=== PATIENT | female | born 1985 | race Caucasian/White ===

== ENCOUNTER 2022-07-02 12:59 | Outpatient (CLI) | payer OTHER, SELFPAY | END 2022-07-02 13:00 | disposition home or self-care (01) | LOC: FRMREF 13:00 | PROVIDERS: PCP Obstetrics & Gynecology; Visit Provider Obstetrics & Gynecology | DX: Z01.419 Encounter for gynecological examination (general) (routine) without abnormal findings (principal); Z13.1 Encounter for screening for diabetes mellitus; Z13.6 Encounter for screening for cardiovascular disorders | CPT/HCPCS: 80061 ==

== ENCOUNTER 2024-03-09 08:51 | Outpatient (CLI) | payer BC, SELFPAY ==
--- OUTSIDE RECORDS SUMMARY | 2024-03-09 08:57 | XMS_ITS | Clinical Summary ---
Author Organization [facility] Address [address] [place] [address] Care Team Providers Care Hypo Splasher Name Role Phone Unavailable Primary Care Provider Unavailabl e Social History Tobacco Use Types Packs/Day Years Used Date Smoking Tobacco: Never Assessed Comments No Sex and Gender Information Value Date Recorded Sex Assigned at Not on file Legal Sex Female 12:25 PM CDT Gender Identity Not on file Sexual Orientation Not on file Plan of Treatment Not on file Insurance [employer]
--- OUTSIDE RECORDS SUMMARY | 2024-03-09 08:57 | XMS_ITS | Clinical Summary ---
Author Organization [facility] Address [place], [place] [address] Care Team Providers Care Cushion Cover Inspector Name Role Phone Clinic, No Pcp Or Primary Care Provider Unavaila ble Allergies No known active allergies Medications No known medications Social History Tobacco Use Types Packs/Day Years Used Date Smoking Tobacco: Unknown Tobacco Cessation:Counseling Given: Not Answered Sex and Gender Information Value Date Recorded Sex Assigned at Not on file Gender Identity Not on file Sexual Orientation Not on file Obstetrics History Last Filed Vital Signs Vital Sign Reading Time Taken Comments Blood Pressure 106/56 07/14/2022 10:00 AM CDT Pulse 100 07/14/2022 10:00 AM CDT Temperature 36.8 C (98.3 F) 07/14/2022 10:00 AM CDT Respiratory Rate 20 07/14/2022 10:00 AM CDT Oxygen Saturation 97% 07/14/2022 10:00 AM CDT Inhaled Oxygen Concentration - - Weight 56.7 kg (125 lb) 07/14/2022 10:00 AM CDT Height - - Body Mass Index - - Plan of Treatment Not on file Care Teams Cushion Cover Inspector Relationship Specialty Start Date End Date Clinic, No Pcp Or . PCP - General 07/14/22
--- OUTSIDE RECORDS SUMMARY | 2024-03-09 08:57 | XMS_ITS | Referral Summary ---
Author Organization [facility] Address [address] [place] [id number] Care Team Providers Care Store Keeper Name Role Phone Unavailable Primary Care Provider [...]
--- OUTSIDE RECORDS SUMMARY | 2024-03-09 08:57 | XMS_ITS | Encounter Summary ---
Author Organization [facility] Address [address] [place] [id number] Care Team Providers Care Gas Station Clerk Name Role Phone Lynn Jay MD Unavailable Unavaila ble Reason for Referral * Diagnostic Imaging Ultrasound (Routine) - Closed Specialty Diagnoses / Procedures Referred By Anne Marie andino Referred To Contact Diagnoses related condition, antepartum Procedures [facility] US Comprehensive Single Teena Pierce MD [address] [address] Phone: tel: fax: Referral ID Status Reason Start Date Expiration Date Visits Re quested Visits Authorized [id number] Closed 08/09/2018 08/09/2019 1 1 * (Routine) - Closed Specialty Diagnoses / Procedures Referred By Anne Marie andino Referred To Contact Diagnoses related condition, antepartum Teena Pierce MD [address] [address] Phone: tel: fax: Referral ID Status Reason Start Date Expiration Date Visits Re quested Visits Authorized [id number] Closed 08/09/2018 08/09/2019 1 1 Question Answer [facility] Man Vásquez MARIELA 12/24/2018 Ultrasound Comprehensive US (>than 18 weeks GA) US PROC NONE MFM Issue Abnormal Ultrasound Findings (enter details in Comments) - Dilated renal pelves choroid plexus cyst @ 20 wks JAYDA ESPINOZA Consultation (unrelated to Ultrasound findings): No Inflammatory Bowel Disease Clinic: Joint MFM and GI Consultation: No Genetic Counseling Consultation: No fax [facility] Teena Pierce [phone] Comments There is no height or weight on file to calculate BMI. >> Patient may proceed with recommendations for further testing as directed by the Maternal Medicine Specialist >> >> If requesting Echo: MFM will determine appropriate location for exam due to indication. >> If requesting Lung Maturity Amnio: If results indicate lung maturity, induction or C/S is recommended within 36 hours. Please schedule accordingly. Please be aware that coverage of these services is subject to the terms and limitations of your health insurance plan. Call member services at your health plan with any benefit or coverage questions. Please bring the following to your appointment: >> Any x-rays, CTs or MRIs which have been performed. Contact the facility where they were done to arrange for cotton picker operator prior to your scheduled appointment. Any new CT, MRI or other procedures ordered by your specialist must be performed at a [facility] facility or coordinated by your clinic's referral office. >> List of current medications >> This referral request >> Any documents/labs given to you for this referral Encounter Details Date Type Department Care Team (Latest Contact Info) Description 08/09/2018 Transcribe Orders [facility] [address] [place] [address] Teena Pierce MD [facility] [address] [place] [address] related condition, antepartum (Primary Dx) Social History Tobacco Use Types Packs/Day Years Used Date Smoking Tobacco: Never Assessed Comments Unknown Sex and Gender Information Value Date Recorded Sex Assigned at Not on file Legal Sex Female 12:25 PM CDT Gender Identity Not on file Sexual Orientation Not on file documented as of this encounter Plan of Treatment Scheduled Referrals Name Type Priority Associated Diagnoses Orde r Schedule [facility] REFERRAL- Referral Routine related condition, antepartum Ordered: 08/09/2018 documented as of this encounter Results * MFM US Comprehensive Single (08/18/2018 2:08 PM CDT) Anatomical Region Laterality Modality Ultrasound 08/18/2018 1:31 PM CDT Impressions 08/18/2018 2:20 PM CDT IMPRESSION ----- Patient here for comprehensive anatomy scan. Previous outside scan identified TANBARK PEELER and pyelectasis. Patient has had aneuploidy risk assessment with low risk NT screen. She is now at 21w5d gestational age. Active single fetus with normal behavior for gestational age. Estimated weight is appropriate for gestational age. Normal amniotic fluid volume. Normal anatomy on detailed review. Bilateral pyelectasis seen without parenchymal abnormalities consistent with UTD A-1. Mid-trimester formatted genetic scan was completed. Over 20 individual ultrasound markers for aneuploidy were evaluated. No TANBARK PEELER visualized today. The cervix appears closed on abdominal examination. Narrative 08/18/2018 2:20 PM CDT Comprehensive ----- Pat. Name: LYNETTE LEDBETTER Study Date: 08/18/2018 1:31pm Pat. NO: [id number] Referring MD: TEENA PIERCE Site: [facility] Cardiac Cath Technician: Hillary Shaver RDMS : 1985 Age: 32 ----- INDICATION ----- Dilated renal pelves and choroid plexus cysts on outside US. METHOD ----- Transabdominal ultrasound examination. View: Sufficient ----- Wang . Number of fetuses: 1 DATING ----- Date Details Gest. age MARIELA LMP 03/19/2018 21 w + 5 d 12/24/2018 Prior assessment 05/17/2018 GA: 9 w + 0 d 22 w + 2 d 12/20/2018 U/S 08/18/2018 based upon AC, BPD, Femur, HC 23 w + 0 d 12/15/2018 Assigned dating Dating performed on 08/18/2018, based on the LMP 21 w + 5 d 12/24/2018 GENERAL EVALUATION ----- Cardiac activity present. FHR 148 bpm. movements present. Presentation cephalic. Placenta anterior, no previa . Umbilical cord 3 vessel cord. Amniotic fluid Amount of AF: normal. MVP 5.3 cm. BIOMETRY ----- Main Biometry: BPD 57.5 mm 23w 4d Hadlock OFD 77.2 mm 23w 4d Nicolaides HC 215.9 mm 23w 4d Hadlock Cerebellum tr 25.7 mm 23w 5d Nicolaides AC 179.5 mm 22w 6d Hadlock Femur 37.8 mm 22w 1d Hadlock Humerus 37.8 mm 23w 2d Reginald Weight Calculation: EFW 522 g EFW (lb,oz) 1 lb 2 oz EFW by Hadlock ([id number]) Head / Face / Neck Biometry: Automatic Oven Operator 5.4 mm CM 6.5 mm Nasal bone 7.5 mm Nuchal fold 3.7 mm Urinary Tract Biometry: Rt Renal pelvis ap 5.8 mm Lt Renal pelvis ap 5.6 mm ANATOMY ----- Abdomen Right kidney: There is mild dilation of the renal pelvis without dilation of the calyces. Parenchyma is of normal echogenicity and thickness. (UTD A1: Low Risk) Left kidney: There is mild dilation of the renal pelvis without dilation of the calyces. Parenchyma is of normal echogenicity and thickness. (UTD A1: Low Risk) The following structures appear normal: Head / Neck Cranium. Head size. Head shape. Lateral ventricles. Choroid plexus. Midline falx. Cavum septi pellucidi. Cerebellum. Cisterna magna. Parenchyma. Thalami. Vermis. Neck. Nuchal fold. Face Lips. Profile. Nose. Maxilla. Mandible. Orbits. Lens. Heart / Thorax 4-chamber view. RVOT view. LVOT view. Situs. Aortic arch view. Bicaval view. Ductal arch view. Superior vena cava. Inferior vena cava. 3-vessel view. 4-bipxgy-sxxopcl view. Cardiac position. Cardiac size. Cardiac rhythm. Right lung. Left lung. Diaphragm. Abdomen Abdominal wall. Cord insertion. Stomach. Bladder. Liver. Bowel. Genitals. Spine Cervical spine. Thoracic spine. Lumbar spine. Sacral spine. Extremities / Skeleton Right hand. Left hand. Right foot. Left foot. Gender: male. MATERNAL STRUCTURES ----- Cervix Visualized Appearance: Appears Closed Cervical length 42.9 mm Right Ovary Visualized Left Ovary Visualized RECOMMENDATION ----- We discussed the findings on today's ultrasound with the patient. Bilateral renal pyelectasis of 4 to <7 mm before 28 weeks is identified without calyceal dilatation or associated parenchymal abnormalities. This is consistent with UTD A1 which is a condition with low risk for renal disease. This finding resolves in over 75% of cases prior to delivery. Most common association is with vesico-ureteral reflux that improves with advancing gestational age. Less common cause is UPJ stenosis. Renal pyelectasis has also been associated as a soft marker for aneuploidy, specifically Tri 21. Patient has prior risk assessment for aneuploidy which placed her risk at 1:5,100. Today's finding does not change the patient's low risk status. Recommend repeat assessment for pyelectasis at 32 weeks. Thank you for the opportunity to participate in the care of this patient. If you have questions regarding today's evaluation or if we can be of further service, please contact the [facility]. anomalies may be present but not detected Procedure Note Karlos Burnett MD - 08/18/2018 Comprehensive ----- Pat. Name:Isis LEDBETTER Date:08/18/2018 1:31pm Pat. NO: [id number] MD:TEENA PIERCE [facility]aver RDMS :1985Age:32 ----- INDICATION ----- Dilated renal pelves and choroid plexus cysts on outside US. METHOD ----- Transabdominal ultrasound examination. View: Sufficient ----- Wang . Number of fetuses: 1 DATING ----- DateDetailsGest. age MARIELA LMP 03/19/201821 w + 5 d 12/24/2018 Prior assessment 05/17/2018 GA: 9 w +0 d22 w + 2 d 12/20/2018 U/S 08/18/2018based upon AC, BPD, Femur, HC23 w + 0 d 12/15/2018 Assigned dating Dating performed on 08/18/2018, based onthe LMP 21 w+ 5 d 12/24/2018 GENERAL EVALUATION ----- Cardiac activity present. FHR 148 bpm. movements present. Presentation cephalic. Placenta anterior, no previa . Umbilical cord 3 vessel cord. Amniotic fluid Amount of AF: normal. MVP 5.3 cm. BIOMETRY ----- Main Biometry: BPD 57.5 mm23w 4d Hadlock OFD 77.2 mm23w 4d Nicolaides HC 215.9 mm23w 4d Hadlock Cerebellum tr 25.7 mm23w 5d Nicolaides AC 179.5 mm22w 6d Hadlock Femur 37.8 mm22w 1d Hadlock Humerus 37.8 mm23w 2d Reginald Weight Calculation: EFW 522 g EFW (lb,oz) 1 lb 2 oz EFW by Hadlock ([id number]) Head / Face / Neck Biometry: Automatic Oven Operator 5.4 mm CM 6.5 mm Nasal bone 7.5 mm Nuchal fold 3.7 mm Urinary Tract Biometry: Rt Renal pelvis ap 5.8 mm Lt Renal pelvis ap 5.6 mm ANATOMY ----- Abdomen Right kidney: There is mild dilationof the renal pelvis without dilation of the calyces. Parenchyma is ofnormal echogenicity and thickness. (UTD A1: Low Risk) Left kidney: There is milddilation of the renal pelvis without dilation of the calyces. Parenchymais of normal echogenicity and thickness. (UTD A1: Low Risk) The following structures appear normal: Head / Neck Cranium. Head size. Head shape.Lateral ventricles. Choroid plexus. Midline falx. Cavum septi pellucidi.Cerebellum. Cisterna magna. Parenchyma. Thalami. Vermis. Neck. Nuchal fold. Face Lips. Profile. Nose. Maxilla.Mandible. Orbits. Lens. Heart / Thorax 4-chamber view. RVOT view. LVOT view.Situs. Aortic arch view. Bicaval view. Ductal arch view. Superior venacava. Inferior vena cava. 3-vessel view. 2-vaobzn-bggvkac view.Cardiac position. Cardiac size. Cardiac rhythm. Right lung. Left lung.Diaphragm. Abdomen Abdominal wall. Cord insertion.Stomach. Bladder. Liver. Bowel. Genitals. Spine Cervical spine. Thoracic spine.Lumbar spine. Sacral spine. Extremities / Skeleton Right hand. Left hand. Right foot. Leftfoot. Gender: male. MATERNAL STRUCTURES ----- Cervix Visualized Appearance: Appears Closed Cervical length 42.9 mm Right Ovary Visualized Left Ovary Visualized RECOMMENDATION ----- We discussed the findings on today's ultrasound with the patient.Bilateral renal pyelectasis of 4 to <7 mm before 28 weeks is identifiedwithout calyceal dilatation or associated parenchymal abnormalities. This is consistent with UTD A1 whichis a condition with low risk for renal disease. This finding resolves inover 75% of cases prior to delivery. Most common association is with vesico-ureteral reflux thatimproves with advancing gestational age. Less common cause is UPJstenosis. Renal pyelectasis has also been associated as a soft marker for aneuploidy, specifically Tri21. Patient has prior risk assessment for aneuploidy which placed her riskat 1:5,100. Today's finding does not change the patient's low risk status. Recommend repeat assessment for pyelectasis at 32 weeks. Thank you for the opportunity to participate in the care of this patient.If you have questions regarding today's evaluation or if we can be offurther service, please contact the [facility]. anomalies may be present but not detected IMPRESSION ----- Patient here for comprehensive anatomy scan. Previous outside scanidentified TANBARK PEELER and pyelectasis. Patient has had aneuploidy riskassessment with low risk NT screen. She is now at 21w5d gestational age. Active single fetus with normal behavior for gestational age. Estimated weight is appropriate for gestational age. Normal amniotic fluid volume. Normal anatomy on detailed review. Bilateral pyelectasis seenwithout parenchymal abnormalities consistent with UTD A-1. Mid-trimester formatted genetic scan was completed. Over 20 individualultrasound markers for aneuploidy were evaluated. No TANBARK PEELER visualizedtoday. The cervix appears closed on abdominal examination. us Teena Pierce MD [facility] US ORDERABLES Edited Re sult - Final documented in this encounter Visit Diagnoses Diagnosis related condition, antepartum- Primary related condition, antepartum documented in this encounter Care Teams Gas Station Clerk Relationship Specialty Start Date End Date Lynn Jay MD Assigned OBGYN Provider 02/10/20 05/05/20 documented as of this encounter
== END 2024-03-09 08:52 | disposition home or self-care (01) ==
PROVIDERS: Visit Provider Obstetrics & Gynecology
DX: Z01.419 Encounter for gynecological examination (general) (routine) without abnormal findings (principal); L65.9 Nonscarring hair loss, unspecified; R23.2 Flushing; Z13.6 Encounter for screening for cardiovascular disorders; Z13.1 Encounter for screening for diabetes mellitus
CPT/HCPCS: 80061; 82947; 83001; 84443

== ENCOUNTER 2024-09-08 09:22 | Outpatient (CLI) | payer BC, SELFPAY | END 2024-09-08 09:23 | disposition home or self-care (01) | LOC: FRMREF 09:22 | DX: L08.9 Local infection of the skin and subcutaneous tissue, unspecified (principal) | CPT/HCPCS: 87070 ==

== ENCOUNTER 2025-03-06 07:43 | Outpatient (CLI) | payer BC, SELFPAY | END 2025-03-06 07:44 | disposition home or self-care (01) | LOC: NFLDREF 03-09 06:38 | PROVIDERS: Visit Provider Physician Assistant Medical | DX: Z00.00 Encounter for general adult medical examination without abnormal findings (principal); Z13.6 Encounter for screening for cardiovascular disorders | CPT/HCPCS: 80053; 80061; 84443 ==